=== PATIENT | female | born 1950 | race Caucasian/White ===

== ENCOUNTER → 2017-01-01 | Outpatient (REF) | payer MEDICARE, OTHER | LOC: M LAB REF 16:48 | PROVIDERS: ATTEND Family Medicine | DX: H01.009 Unspecified blepharitis unspecified eye, unspecified eyelid (principal) ==

== ENCOUNTER 2022-12-01 10:46 | Inpatient (IN) | payer MEDICARE ==
[~2022-12-01] VITALS: Ht 172.7 cm; Wt 66.1 kg
[2022-12-01 13:17] VITALS: BP 134/76
[2022-12-01] MEDS ORDERED: MORPHINE 2 MG/ML 1ML VIAL IV PRN (13:55)
[2022-12-01 15:01] LABS: BASO % 0.1 % (0.0-1.0); HEMATOCRIT 40.5 % (36.0-47.0); HEMOGLOBIN 13.9 g/dl (12.0-15.5); LYMPH # 1.1 10^3/uL (1.5-5.0); LYMPH % 5.9 % (24.0-44.0); MEAN CORPUSCULAR HEMOGLOBIN 31.7 pg (27.0-33.0); MEAN CORPUSCULAR HGB CONC 34.3 g/dl (32.0-36.5); MEAN CORPUSCULAR VOLUME 92.3 fl (80.0-96.0); MONO # 1.2 10^3/uL (0.0-0.8); MONO % 6.9 % (2.0-8.0); NEUTROPHILS # 15.3 10^3/uL (1.5-8.5); NEUTROPHILS % 86.4 % (36.0-66.0); PLATELET COUNT, AUTOMATED 237 10^3/uL (150-450); RED BLOOD COUNT 4.39 10^6/uL (4.00-5.40); WHITE BLOOD COUNT 17.7 10^3/uL (4.0-10.0)
[2022-12-01] MEDS: LR 1,000 ML IV SCH (15:03)
[2022-12-01 15:14] LABS: INR 0.97; PROTHROMBIN TIME 13.1 SECONDS (12.5-14.5)
[2022-12-01 15:29] LABS: ALBUMIN 3.6 G/DL (3.2-5.2); BILIRUBIN,TOTAL 4.2 MG/DL (0.3-1.2); CALCIUM LEVEL 8.7 MG/DL (8.3-10.6); GLOMERULAR FILTRATION RATE 57.9 (>39); POTASSIUM SERUM 4.1 MMOL/L (3.5-5.1); TOTAL PROTEIN 6.3 G/DL (5.7-8.2)
[2022-12-01] MEDS ORDERED: OMEP20TA2 PO (16:26)
[2022-12-01] MEDS ORDERED: MAGN400T2 PO (16:26)
[2022-12-01] MEDS ORDERED: VITA200012 PO (16:26)
[2022-12-01] MEDS ORDERED: KP BTAB PO (16:26)
[2022-12-01] MEDS ORDERED: HOME MED LIST COMPLETE! XX SCH (16:30)
[2022-12-01 16:34] VITALS: BP 125/67
[2022-12-01] MEDS: PANTOPRAZOLE 40MG VIAL IV SCH (17:34)
[2022-12-01 19:45] VITALS: BP 145/65
[2022-12-01] MEDS: MORPHINE 4 MG/ML 1ML VIAL IV PRN (19:52)
[2022-12-01] MEDS: HEPARIN SOD (PORCINE) 5000UNITS/ML 1ML VIAL/SYRINGE SQ SCH (20:50)
[2022-12-01 23:46] VITALS: BP 110/62
[2022-12-02] MEDS: LR 1,000 ML IV SCH ×2 (01:29→10:06)
[2022-12-02 04:00] VITALS: BP 108/57
[2022-12-02] MEDS: HEPARIN SOD (PORCINE) 5000UNITS/ML 1ML VIAL/SYRINGE SQ SCH ×3 (05:40→20:45)
[2022-12-02 07:19] VITALS: BP 130/71
[2022-12-02] MEDS: PANTOPRAZOLE 40MG VIAL IV SCH (09:01)
[2022-12-02] MEDS: MORPHINE 4 MG/ML 1ML VIAL IV PRN (09:02)
[2022-12-02 09:30] LABS: BASO % 0.1 % (0.0-1.0); HEMATOCRIT 35.5 % (36.0-47.0); HEMOGLOBIN 12.2 g/dl (12.0-15.5); LYMPH # 0.9 10^3/uL (1.5-5.0); LYMPH % 2.9 % (24.0-44.0); MEAN CORPUSCULAR HEMOGLOBIN 31.6 pg (27.0-33.0); MEAN CORPUSCULAR HGB CONC 34.4 g/dl (32.0-36.5); MONO % 6.9 % (2.0-8.0); NEUTROPHILS # 26.5 10^3/uL (1.5-8.5); NEUTROPHILS % 89.4 % (36.0-66.0); PLATELET COUNT, AUTOMATED 232 10^3/uL (150-450); RED BLOOD COUNT 3.86 10^6/uL (4.00-5.40); WHITE BLOOD COUNT 29.7 10^3/uL (4.0-10.0)
[2022-12-02 09:57] LABS: MONO # 2.1 10^3/uL (0.0-0.8)
[2022-12-02 10:00] LABS: CALCIUM LEVEL 8.2 MG/DL (8.3-10.6); CREATININE FOR GFR 1.54 MG/DL (0.55-1.30); GLOMERULAR FILTRATION RATE 35.2 (>39); MAGNESIUM LEVEL 2.1 MG/DL (1.8-2.4); PHOSPHORUS LEVEL 5.3 MG/DL (2.4-5.1); POTASSIUM SERUM 4.4 MMOL/L (3.5-5.1)
[2022-12-02 10:03] LABS: ALBUMIN 3.1 G/DL (3.2-5.2); BILIRUBIN,DIRECT 0.3 MG/DL (<0.4); BILIRUBIN,TOTAL 3.6 MG/DL (0.3-1.2); TOTAL PROTEIN 5.7 G/DL (5.7-8.2)
[2022-12-02] MEDS ORDERED: cefTRIAXone SOD 2GM VIAL IM SCH (10:55)
[2022-12-02] MEDS ORDERED: metroNIDAZOLE 500 MG in IV 1 EA IV SCH (11:00)
[2022-12-02] MEDS ORDERED: cefTRIAXone SOD 2 GM in D5W MINI-BAG PLUS 50 ML IV SCH (12:00)
[2022-12-02] MEDS ORDERED: PIPERACILLIN/TAZOBACTAM SOD 3.375 GM in D5W MINI-BAG PLUS 50 ML IV SCH (12:20)
[2022-12-02 12:26] VITALS: BP 131/68
[2022-12-02] MEDS ORDERED: NS 1,000 ML IV ONE (13:20)
[2022-12-02] MEDS ORDERED: LIDOCAINE 1% SDV 30ML VIAL As Ordered ONE (13:24)
[2022-12-02] MEDS ORDERED: BUPIVACAINE HCL 0.25% 30ML VIAL As Ordered ONE (13:24)
[2022-12-02] MEDS ORDERED: BUPIVACAINE HCL 0.25% 10ML VIAL As Ordered ONE (13:57)
[2022-12-02] MEDS ORDERED: BUPIVACAINE LIPOSOME/PF 1.3% 20ML VIAL (13.3MG/ML)(EXPAREL) As Ordered ONE (13:58)
[2022-12-02] MEDS: PIPERACILLIN/TAZOBACTAM SOD 2.25 GM in D5W MINI-BAG PLUS 50 ML IV SCH ×2 (14:16→19:57)
[2022-12-02] MEDS ORDERED: LIDOCAINE 2% 100MG/5ML SDV (FOR ANES.) As Ordered ONE (15:10)
[2022-12-02] MEDS ORDERED: HYDROmorphone HCL 2MG/ML 1ML VIAL As Ordered ONE (15:10)
[2022-12-02] MEDS ORDERED: SUGAMMADEX SODIUM 500 MG/5 ML VIAL (BRIDION) As Ordered ONE (15:10)
[2022-12-02] MEDS ORDERED: ROCURONIUM BROMIDE 50MG/5ML VIAL As Ordered ONE (15:10)
[2022-12-02] MEDS ORDERED: MIDAZOLAM INJ 2MG/2ML VIAL As Ordered ONE (15:10)
[2022-12-02] MEDS ORDERED: SUCCINYLCHOLINE 100MG/5ML SYRINGE As Ordered ONE (15:10)
[2022-12-02] MEDS ORDERED: ONDANSETRON 4MG 2ML VIAL As Ordered ONE (15:10)
[2022-12-02] MEDS ORDERED: fentaNYL 100 MCG/2 ML INJECTION As Ordered ONE (15:10)
[2022-12-02] MEDS ORDERED: propofoL 200 MG/20 ML VIAL As Ordered ONE ×2 (15:10→15:16)
[2022-12-02 17:02] VITALS: BP 108/66
[2022-12-02 19:54] VITALS: BP 118/60
[2022-12-02 23:52] VITALS: BP 119/56
[2022-12-03] VITALS (8 sets, daily range): BP systolic 98–137; BP diastolic 54–76
[2022-12-03] MEDS: PIPERACILLIN/TAZOBACTAM SOD 2.25 GM in D5W MINI-BAG PLUS 50 ML IV SCH ×2 (01:19→06:18)
[2022-12-03] MEDS: LR 1,000 ML IV SCH (04:43)
[2022-12-03] MEDS: HEPARIN SOD (PORCINE) 5000UNITS/ML 1ML VIAL/SYRINGE SQ SCH ×3 (06:17→22:14)
[2022-12-03 06:18] LABS: BASO % 0.1 % (0.0-1.0); HEMATOCRIT 27.9 % (36.0-47.0); LYMPH # 0.9 10^3/uL (1.5-5.0); LYMPH % 4.4 % (24.0-44.0); MEAN CORPUSCULAR HEMOGLOBIN 32.1 pg (27.0-33.0); MEAN CORPUSCULAR HGB CONC 34.1 g/dl (32.0-36.5); MEAN CORPUSCULAR VOLUME 94.3 fl (80.0-96.0); MONO # 1.1 10^3/uL (0.0-0.8); MONO % 5.3 % (2.0-8.0); NEUTROPHILS # 18.6 10^3/uL (1.5-8.5); NEUTROPHILS % 89.7 % (36.0-66.0); PLATELET COUNT, AUTOMATED 184 10^3/uL (150-450); RED BLOOD COUNT 2.96 10^6/uL (4.00-5.40); WHITE BLOOD COUNT 20.8 10^3/uL (4.0-10.0)
[2022-12-03 06:20] LABS: HEMOGLOBIN 9.5 g/dl (12.0-15.5)
[2022-12-03 06:56] LABS: ALBUMIN 2.2 G/DL (3.2-5.2); CALCIUM LEVEL 7.5 MG/DL (8.3-10.6); CREATININE FOR GFR 1.7 MG/DL (0.55-1.30); GLOMERULAR FILTRATION RATE 31.4 (>39); MAGNESIUM LEVEL 1.9 MG/DL (1.8-2.4); PHOSPHORUS LEVEL 4.3 MG/DL (2.4-5.1); TOTAL PROTEIN 4.1 G/DL (5.7-8.2)
[2022-12-03] MEDS: NS 1,000 ML IV SCH ×6 (07:40→20:52)
[2022-12-03] MEDS: MORPHINE 4 MG/ML 1ML VIAL IV PRN (08:51)
[2022-12-03] MEDS: PANTOPRAZOLE 40MG VIAL IV SCH (08:51)
[2022-12-03 11:59] LABS: APPEARANCE, URINE CLOUDY (CLEAR); BACTERIA, URINE AUTO NEGATIVE (NEGATIVE); BILIRUBIN, URINE AUTO NEGATIVE (NEGATIVE); BLOOD, URINE BLOOD 2+ (NEGATIVE); COLOR, URINE YELLOW (YELLOW); GLUCOSE, URINE (UA) AUTO NEGATIVE (NEGATIVE); GRANULAR CAST, URINE AUTO 3 /LPF; KETONE, URINE AUTO TRACE mg/dL (NEGATIVE); LEUKOCYTE ESTERASE, URINE AUTO TRACE (NEGATIVE); MUCUS, URINE SMALL (NEGATIVE); NITRITE, URINE AUTO NEGATIVE (NEGATIVE); PROTEIN, URINE AUTO 1+ mg/dL (NEGATIVE); RBC, URINE AUTO 27 /HPF (0-3); SPECIFIC GRAVITY URINE AUTO 1.026 (1.002-1.035); SQUAMOUS EPITHELIAL CELL UR AU 2 /HPF (0-6); URIC ACID CRYSTALS SMALL; UROBILINOGEN, URINE AUTO 0.2 mg/dL (0.0-2.0); WBC, URINE AUTO 5 /HPF (0-3)
[2022-12-03] MEDS: PIPERACILLIN/TAZOBACTAM SOD 3.375 GM in D5W MINI-BAG PLUS 50 ML IV SCH ×2 (12:45→18:19)
[2022-12-03] MEDS ORDERED: ACETAMINOPHEN 650MG SUPP PR ONE (15:45)
[2022-12-03] MEDS ORDERED: METOPROLOL 5 MG/5 ML VIAL IV STA (15:55)
[2022-12-03] MEDS ORDERED: DIGOXIN INJ 0.5 MG/2 ML AMP IV ONE (18:05)
[2022-12-03] MEDS: ALVIMOPAN 12 MG CAPSULE (ENTEREG) PO SCH (20:29)
[2022-12-03] MEDS ORDERED: METOPROLOL 5 MG/5 ML VIAL IV ONE (21:00)
[2022-12-03] MEDS: METOPROLOL 5 MG/5 ML VIAL IV SCH (22:00)
[2022-12-04] VITALS (15 sets, daily range): BP systolic 98–138; BP diastolic 51–76
[2022-12-04] MEDS: PIPERACILLIN/TAZOBACTAM SOD 3.375 GM in D5W MINI-BAG PLUS 50 ML IV SCH ×4 (01:38→19:29)
[2022-12-04] MEDS: NS 1,000 ML IV SCH ×3 (04:01→20:59)
[2022-12-04] MEDS: METOPROLOL 5 MG/5 ML VIAL IV SCH ×4 (04:53→21:03)
[2022-12-04] MEDS: HEPARIN SOD (PORCINE) 5000UNITS/ML 1ML VIAL/SYRINGE SQ SCH ×2 (04:58→13:27)
[2022-12-04 08:05] LABS: BASO % 0.1 % (0.0-1.0); LYMPH # 0.8 10^3/uL (1.5-5.0); LYMPH % 5.7 % (24.0-44.0); MEAN CORPUSCULAR HGB CONC 33.2 g/dl (32.0-36.5); MEAN CORPUSCULAR VOLUME 96.5 fl (80.0-96.0); MONO # 0.7 10^3/uL (0.0-0.8); MONO % 4.8 % (2.0-8.0); NEUTROPHILS # 12.7 10^3/uL (1.5-8.5); NEUTROPHILS % 88.9 % (36.0-66.0); PLATELET COUNT, AUTOMATED 199 10^3/uL (150-450); RED BLOOD COUNT 2.31 10^6/uL (4.00-5.40); WHITE BLOOD COUNT 14.3 10^3/uL (4.0-10.0)
[2022-12-04 08:07] LABS: HEMATOCRIT 22.3 % (36.0-47.0); HEMOGLOBIN 7.4 g/dl (12.0-15.5)
[2022-12-04 08:34] LABS: ALBUMIN 1.9 G/DL (3.2-5.2); BILIRUBIN,TOTAL 1.2 MG/DL (0.3-1.2); CALCIUM LEVEL 7.9 MG/DL (8.3-10.6); CREATININE FOR GFR 0.99 MG/DL (0.55-1.30); GLOMERULAR FILTRATION RATE 58.5 (>39); MAGNESIUM LEVEL 2.3 MG/DL (1.8-2.4); PHOSPHORUS LEVEL 2.4 MG/DL (2.4-5.1); POTASSIUM SERUM 3.3 MMOL/L (3.5-5.1); TOTAL PROTEIN 4.1 G/DL (5.7-8.2)
[2022-12-04] MEDS: PANTOPRAZOLE 40MG VIAL IV SCH (09:31)
[2022-12-04] MEDS: ALVIMOPAN 12 MG CAPSULE (ENTEREG) PO SCH ×2 (09:31→20:25)
[2022-12-04] MEDS: KCL 10MEQ/100ML SWI (KRUN) 10 MEQ in IV 1 EA IV SCH ×6 (10:31→20:56)
[2022-12-04] MEDS ORDERED: LIDOCAINE 1% MDV 20ML VIAL As Ordered ONE (15:32)
[2022-12-04] MEDS ORDERED: MORPHINE 10 MG/ML 1ML VIAL As Ordered ONE (16:12)
[2022-12-04] MEDS: MORPHINE 4 MG/ML 1ML VIAL IV PRN (17:29)
[2022-12-04] MEDS ORDERED: SODIUM CHLORIDE 0.9% INJ 10 ML SYR IV PRN (17:30)
[2022-12-04] MEDS: SODIUM CHLORIDE 0.9% INJ 10 ML SYR IV SCH (18:00)
[2022-12-04] MEDS ORDERED: FAT EMULSION IV 250 ML IV ONE (18:00)
[2022-12-04] MEDS ORDERED: AMINO AC/ELECTROLYTE/DEX/CALC 1,000 ML IV SCH (18:00)
[2022-12-04 22:35] LABS: HEMATOCRIT 26.3 % (36.0-47.0); HEMOGLOBIN 8.9 g/dl (12.0-15.5)
[2022-12-05] MEDS: PIPERACILLIN/TAZOBACTAM SOD 3.375 GM in D5W MINI-BAG PLUS 50 ML IV SCH ×4 (01:25→18:02)
[2022-12-05] MEDS: PERCOCET 5MG/325MG TAB PO PRN ×2 (02:41→09:11)
[2022-12-05 03:36] VITALS: BP 104/50
[2022-12-05] MEDS: METOPROLOL 5 MG/5 ML VIAL IV SCH ×3 (04:00→09:12)
[2022-12-05] MEDS: SODIUM CHLORIDE 0.9% INJ 10 ML SYR IV SCH ×2 (05:02→16:46)
[2022-12-05 07:03] LABS: BASO % 0.1 % (0.0-1.0); HEMOGLOBIN 9.4 g/dl (12.0-15.5); LYMPH # 1.5 10^3/uL (1.5-5.0); LYMPH % 10.4 % (24.0-44.0); MEAN CORPUSCULAR HGB CONC 34.8 g/dl (32.0-36.5); MEAN CORPUSCULAR VOLUME 91.8 fl (80.0-96.0); MONO # 0.7 10^3/uL (0.0-0.8); MONO % 5.2 % (2.0-8.0); NEUTROPHILS # 11.8 10^3/uL (1.5-8.5); NEUTROPHILS % 83.4 % (36.0-66.0); PLATELET COUNT, AUTOMATED 246 10^3/uL (150-450); RED BLOOD COUNT 2.94 10^6/uL (4.00-5.40); WHITE BLOOD COUNT 14.1 10^3/uL (4.0-10.0)
[2022-12-05 07:42] LABS: ALBUMIN 1.9 G/DL (3.2-5.2); ALKALINE PHOSPHATASE 41 U/L (46-116); ALT/SGPT 16 U/L (7.0-40); AST/SGOT 21 U/L (<34); BILIRUBIN,TOTAL 1.2 MG/DL (0.3-1.2); BLOOD UREA NITROGEN 29 MG/DL (9-23); CALCIUM LEVEL 7.5 MG/DL (8.3-10.6); CARBON DIOXIDE LEVEL 23 MMOL/L (20-31); CHLORIDE LEVEL 110 MMOL/L (98-107); CREATININE FOR GFR 0.76 MG/DL (0.55-1.30); GLOMERULAR FILTRATION RATE > 60.0 (>39); GLUCOSE, FASTING 176 MG/DL (74-106); MAGNESIUM LEVEL 2.3 MG/DL (1.8-2.4); SODIUM LEVEL 139 MMOL/L (136-145); TOTAL PROTEIN 4.4 G/DL (5.7-8.2)
[2022-12-05 07:48] VITALS: BP 140/67
[2022-12-05] MEDS: ALVIMOPAN 12 MG CAPSULE (ENTEREG) PO SCH ×2 (09:11→20:32)
[2022-12-05] MEDS: PANTOPRAZOLE 40MG VIAL IV SCH (09:12)
[2022-12-05] MEDS: NS 1,000 ML IV SCH (11:09)
[2022-12-05 11:40] VITALS: BP 145/77
[2022-12-05 15:15] VITALS: BP 139/74
[2022-12-05] MEDS ORDERED: AMINO AC/ELECTROLYTE/DEX/CALC 2,000 ML IV SCH (18:00)
[2022-12-05] MEDS ORDERED: FAT EMULSION IV 250 ML IV ONE (18:00)
[2022-12-05] MEDS: INSULIN LISPRO (NovoLOG) PER UNIT SC SCH (18:00)
[2022-12-05 20:00] VITALS: BP 152/79
[2022-12-05] MEDS: METOPROLOL TART 25 MG TABLET PO SCH (20:34)
[2022-12-06] VITALS (7 sets, daily range): BP systolic 133–158; BP diastolic 67–86
[2022-12-06] MEDS: NS 1,000 ML IV SCH (00:13)
[2022-12-06] MEDS: PIPERACILLIN/TAZOBACTAM SOD 3.375 GM in D5W MINI-BAG PLUS 50 ML IV SCH ×4 (00:13→20:19)
[2022-12-06] MEDS: SODIUM CHLORIDE 0.9% INJ 10 ML SYR IV SCH ×2 (03:47→18:03)
[2022-12-06] MEDS: INSULIN LISPRO (NovoLOG) PER UNIT SC SCH ×2 (06:00)
[2022-12-06 07:22] LABS: BASO % 0.4 % (0.0-1.0); EOS # 0.1 10^3/uL (0.0-0.5); EOS % 0.7 % (0.0-3.0); HEMATOCRIT 28.8 % (36.0-47.0); HEMOGLOBIN 9.9 g/dl (12.0-15.5); LYMPH # 1.2 10^3/uL (1.5-5.0); MEAN CORPUSCULAR HEMOGLOBIN 32.1 pg (27.0-33.0); MEAN CORPUSCULAR HGB CONC 34.4 g/dl (32.0-36.5); MEAN CORPUSCULAR VOLUME 93.5 fl (80.0-96.0); MONO # 0.8 10^3/uL (0.0-0.8); MONO % 7.8 % (2.0-8.0); NEUTROPHILS # 7.8 10^3/uL (1.5-8.5); NEUTROPHILS % 77.2 % (36.0-66.0); PLATELET COUNT, AUTOMATED 243 10^3/uL (150-450); RED BLOOD COUNT 3.08 10^6/uL (4.00-5.40)
[2022-12-06] MEDS: PANTOPRAZOLE 40MG VIAL IV SCH (08:21)
[2022-12-06] MEDS: METOPROLOL TART 25 MG TABLET PO SCH ×2 (08:21→20:20)
[2022-12-06] MEDS: ALVIMOPAN 12 MG CAPSULE (ENTEREG) PO SCH ×2 (08:22→20:20)
[2022-12-06 08:46] LABS: ALBUMIN 2.1 G/DL (3.2-5.2); ALKALINE PHOSPHATASE 39 U/L (46-116); ALT/SGPT 16 U/L (7.0-40); AST/SGOT 18 U/L (<34); BILIRUBIN,TOTAL 0.7 MG/DL (0.3-1.2); BLOOD UREA NITROGEN 15 MG/DL (9-23); CALCIUM LEVEL 7.2 MG/DL (8.3-10.6); CARBON DIOXIDE LEVEL 25 MMOL/L (20-31); CHLORIDE LEVEL 106 MMOL/L (98-107); CREATININE FOR GFR 0.55 MG/DL (0.55-1.30); GLOMERULAR FILTRATION RATE > 60.0 (>39); GLUCOSE, FASTING 144 MG/DL (74-106); MAGNESIUM LEVEL 1.9 MG/DL (1.8-2.4); POTASSIUM SERUM 2.9 MMOL/L (3.5-5.1); SODIUM LEVEL 137 MMOL/L (136-145); TOTAL PROTEIN 4.4 G/DL (5.7-8.2)
[2022-12-06] MEDS ORDERED: KCL 10MEQ/100ML SWI (KRUN) 10 MEQ in IV 1 EA IV ONE (09:00)
[2022-12-06] MEDS ORDERED: POTASSIUM CHLORIDE 10MEQ SR TABLET PO ONE (10:00)
[2022-12-06] MEDS: KCL 20MEQ IN 100ML SWI (KRUN) 20 MEQ in IV 1 EA IV SCH ×4 (10:16→10:17)
[2022-12-07] MEDS: PIPERACILLIN/TAZOBACTAM SOD 3.375 GM in D5W MINI-BAG PLUS 50 ML IV SCH ×2 (00:57→06:28)
[2022-12-07 06:12] VITALS: BP 141/73
[2022-12-07 06:23] LABS: BASO # 0.1 10^3/uL (0.0-0.2); BASO % 0.8 % (0.0-1.0); EOS # 0.2 10^3/uL (0.0-0.5); EOS % 1.5 % (0.0-3.0); HEMATOCRIT 33.1 % (36.0-47.0); HEMOGLOBIN 11.4 g/dl (12.0-15.5); LYMPH # 1.8 10^3/uL (1.5-5.0); LYMPH % 17.6 % (24.0-44.0); MEAN CORPUSCULAR HEMOGLOBIN 31.8 pg (27.0-33.0); MEAN CORPUSCULAR HGB CONC 34.4 g/dl (32.0-36.5); MEAN CORPUSCULAR VOLUME 92.5 fl (80.0-96.0); MONO # 0.8 10^3/uL (0.0-0.8); MONO % 7.5 % (2.0-8.0); NEUTROPHILS # 7.3 10^3/uL (1.5-8.5); NEUTROPHILS % 69.7 % (36.0-66.0); PLATELET COUNT, AUTOMATED 294 10^3/uL (150-450); RED BLOOD COUNT 3.58 10^6/uL (4.00-5.40); WHITE BLOOD COUNT 10.5 10^3/uL (4.0-10.0)
[2022-12-07] MEDS: SODIUM CHLORIDE 0.9% INJ 10 ML SYR IV SCH ×2 (06:28→18:04)
[2022-12-07 06:53] LABS: ALBUMIN 2.1 G/DL (3.2-5.2); ALKALINE PHOSPHATASE 50 U/L (46-116); ALT/SGPT 38 U/L (7.0-40); AST/SGOT 42 U/L (<34); BILIRUBIN,TOTAL 0.9 MG/DL (0.3-1.2); BLOOD UREA NITROGEN 9 MG/DL (9-23); CALCIUM LEVEL 7.5 MG/DL (8.3-10.6); CARBON DIOXIDE LEVEL 27 MMOL/L (20-31); CHLORIDE LEVEL 105 MMOL/L (98-107); GLOMERULAR FILTRATION RATE > 60.0 (>39); GLUCOSE, FASTING 119 MG/DL (74-106); MAGNESIUM LEVEL 1.8 MG/DL (1.8-2.4); POTASSIUM SERUM 3.3 MMOL/L (3.5-5.1); SODIUM LEVEL 139 MMOL/L (136-145); TOTAL PROTEIN 4.6 G/DL (5.7-8.2)
[2022-12-07 08:20] LABS: PHOSPHORUS LEVEL 1.9 MG/DL (2.4-5.1)
[2022-12-07] MEDS: PANTOPRAZOLE 40MG VIAL IV SCH (08:43)
[2022-12-07] MEDS: MAG SULF 1GM/100ML (MAG RUN) 1 GM in IV 1 EA IV SCH ×2 (08:43→10:05)
[2022-12-07] MEDS: ALVIMOPAN 12 MG CAPSULE (ENTEREG) PO SCH ×2 (08:44→19:55)
[2022-12-07] MEDS: METOPROLOL TART 25 MG TABLET PO SCH ×2 (08:44→19:56)
[2022-12-07] MEDS ORDERED: POTASSIUM CHLORIDE 10MEQ SR TABLET PO ONE (09:00)
[2022-12-07] MEDS: LevoFLOXacin 750 MG TABLET PO SCH (12:18)
[2022-12-07 14:00] VITALS: BP 153/76
[2022-12-07 19:56] VITALS: BP 151/75
[2022-12-07 22:00] VITALS: BP 143/77
[2022-12-08] MEDS: LevoFLOXacin 750 MG TABLET PO SCH (04:51)
[2022-12-08] MEDS: SODIUM CHLORIDE 0.9% INJ 10 ML SYR IV SCH (04:53)
[2022-12-08 05:32] LABS: BASO % 0.3 % (0.0-1.0); EOS # 0.2 10^3/uL (0.0-0.5); EOS % 1.9 % (0.0-3.0); HEMATOCRIT 31.4 % (36.0-47.0); HEMOGLOBIN 10.5 g/dl (12.0-15.5); LYMPH # 1.9 10^3/uL (1.5-5.0); LYMPH % 18.1 % (24.0-44.0); MEAN CORPUSCULAR HEMOGLOBIN 31.3 pg (27.0-33.0); MEAN CORPUSCULAR HGB CONC 33.4 g/dl (32.0-36.5); MEAN CORPUSCULAR VOLUME 93.7 fl (80.0-96.0); MONO # 0.7 10^3/uL (0.0-0.8); MONO % 7.1 % (2.0-8.0); PLATELET COUNT, AUTOMATED 308 10^3/uL (150-450); RED BLOOD COUNT 3.35 10^6/uL (4.00-5.40); WHITE BLOOD COUNT 10.2 10^3/uL (4.0-10.0)
[2022-12-08 06:00] VITALS: BP 142/83
[2022-12-08] MEDS ORDERED: LevoFLOXacin 500 MG TABLET PO SCH (06:00)
[2022-12-08 06:10] LABS: ALBUMIN 2.2 G/DL (3.2-5.2); ALKALINE PHOSPHATASE 50 U/L (46-116); ALT/SGPT 52 U/L (7.0-40); AST/SGOT 48 U/L (<34); BILIRUBIN,TOTAL 0.6 MG/DL (0.3-1.2); BLOOD UREA NITROGEN 10 MG/DL (9-23); CALCIUM LEVEL 7.3 MG/DL (8.3-10.6); CARBON DIOXIDE LEVEL 27 MMOL/L (20-31); CHLORIDE LEVEL 106 MMOL/L (98-107); CREATININE FOR GFR 0.58 MG/DL (0.55-1.30); GLOMERULAR FILTRATION RATE > 60.0 (>39); GLUCOSE, FASTING 107 MG/DL (74-106); MAGNESIUM LEVEL 1.8 MG/DL (1.8-2.4); PHOSPHORUS LEVEL 2.4 MG/DL (2.4-5.1); POTASSIUM SERUM 3.4 MMOL/L (3.5-5.1); SODIUM LEVEL 139 MMOL/L (136-145); TOTAL PROTEIN 4.5 G/DL (5.7-8.2)
[2022-12-08] MEDS ORDERED: POTASSIUM CHLORIDE 10MEQ SR TABLET PO ONE (08:00)
[2022-12-08] MEDS: MAG SULF 1GM/100ML (MAG RUN) 1 GM in IV 1 EA IV SCH ×2 (08:00→09:00)
[2022-12-08] MEDS: METOPROLOL TART 25 MG TABLET PO SCH (09:00)
[2022-12-08] MEDS: PANTOPRAZOLE 40MG VIAL IV SCH (09:00)
[2022-12-08] MEDS: ALVIMOPAN 12 MG CAPSULE (ENTEREG) PO SCH (09:00)
[2022-12-08] MEDS ORDERED: LEVO1TAB40 PO (11:42)
== END 2022-12-08 17:30 | disposition home or self-care (01) | DRG 329 ==
LOC: M PCU 13:54 → M MS5PR 12-06 23:17
PROVIDERS: ADMIT Family Medicine; ATTEND Student in an Organized Health Care Education/Training Program
PROC: 0DTJ0ZZ Resection of Appendix, Open Approach (ICD-10-PCS; 2022-12-02)
PROC: 0DT80ZZ Resection of Small Intestine, Open Approach (ICD-10-PCS; principal; 2022-12-02 13:00)
PROC: 30233N1 Transfusion of Nonautologous Red Blood Cells into Peripheral Vein, Percutaneous Approach (ICD-10-PCS; 2022-12-04)
PROC: 02HV33Z Insertion of Infusion Device into Superior Vena Cava, Percutaneous Approach (ICD-10-PCS; 2022-12-04)
DX: K56.52 Intestinal adhesions [bands] with complete obstruction (principal); K65.0 Generalized (acute) peritonitis; K55.019 Acute (reversible) ischemia of small intestine, extent unspecified; N17.9 Acute kidney failure, unspecified; K55.9 Vascular disorder of intestine, unspecified; R18.8 Other ascites; I48.91 Unspecified atrial fibrillation; I73.00 Raynaud's syndrome without gangrene; K74.60 Unspecified cirrhosis of liver; K20.90 Esophagitis, unspecified without bleeding; D72.829 Elevated white blood cell count, unspecified; Z79.899 Other long term (current) drug therapy